=== PATIENT | female | born 1995 | race Caucasian/White ===

== ENCOUNTER 2019-12-03 17:45 | Emergency (ER) | payer OTHER ==
[2019-12-03] MEDS ORDERED: NORMAL SALINE 1000 ML 1,000 ML IV ONE (18:33)
--- NOTE | 2019-12-03 18:34 | ER Document Report ---
ED Medical Screen (RME) - General Chief Complaint: Abnormal Lab Results Stated Complaint: ABNORMAL LABS Time Seen by Provider: 12/03/19 18:30 Information source: Patient Notes: Patient presents complaining of exertional shortness of breath with chest pain that developed today. Patient reports feeling lightheaded. Patient states she recently had outpatient lab work and was told that her iron was low. Patient reports previous history of bipolar disorder. I have greeted and performed a rapid initial assessment of this patient. A comprehensive ED assessment and evaluation of the patient, analysis of test results and completion of the medical decision making process will be conducted by additional ED providers. - Related Data Allergies/Adverse Reactions: No Known Allergies Allergy (Verified 12/03/19 18:15) Home Medications: seroquel. prozac. control. vitamin b 12 d c. multivitamin Past Medical History - Social History Chew tobacco use (# tins/day): No Frequency of alcohol use: None Drug Abuse: None Physical Exam - Vital signs Vitals: Temp Pulse Resp BP Pulse Ox 98.3 F 102 H 18 132/72 H 99 12/03/19 17:57 12/03/19 17:57 12/03/19 17:57 12/03/19 17:57 12/03/19 17:57 - Respiratory Respiratory status: No respiratory distress - Cardiovascular Rhythm: Tachycardia Heart sounds: S1 appreciated, S2 appreciated Murmur: No Course - Vital Signs Vital signs: Temp Pulse Resp BP Pulse Ox 98.3 F 102 H 18 132/72 H 99 12/03/19 18:16 12/03/19 17:57 12/03/19 17:57 12/03/19 17:57 12/03/19 17:57
[2019-12-03 19:06] LABS: ABSOLUTE EOSINOPHILS # (AUTO) 0.2 10^3/uL (0.0-0.6); ABSOLUTE LYMPHOCYTES (AUTO) 2.9 10^3/uL (0.5-4.7); ABSOLUTE MONOCYTES (AUTO) 0.6 10^3/uL (0.1-1.4); ABSOLUTE NEUT (AUTO) 7.7 10^3/uL (1.7-8.2); BASOPHILS % (AUTO) 0.3 % (0-2); HEMATOCRIT 38.5 % (36.0-47.0); HEMOGLOBIN 13.2 g/dL (12.0-15.5); LYMPHOCYTES % (AUTO) 25.1 % (13-45); MEAN CORPUSCULAR HEMOGLOBIN 31.7 pg (27.0-33.4); MEAN CORPUSCULAR HGB CONC 34.2 g/dL (32.0-36.0); MEAN CORPUSCULAR VOLUME 93 fl (80-97); MONOCYTES % (AUTO) 5.1 % (3-13); PLATELET COUNT 350 10^3/uL (150-450); RED BLOOD COUNT 4.15 10^6/uL (3.72-5.28); RED CELL DISTRIBUTION WIDTH 13.6 % (11.5-14.0); SEGMENTED NEUTROPHILS % (AUTO) 67.5 % (42-78); TOTAL CELLS COUNTED % (AUTO) 100 %; WHITE BLOOD COUNT 11.4 10^3/uL (4.0-10.5)
--- NOTE | 2019-12-03 19:12 | RADIOLOGY REPORT (SQ) ---
EXAM DESCRIPTION: CHEST SINGLE VIEW IMAGES COMPLETED DATE/TIME: 12/03/2019 7:01 pm REASON FOR STUDY: cp COMPARISON: None. EXAM PARAMETERS: NUMBER OF VIEWS: One view. TECHNIQUE: Single frontal radiographic view of the chest acquired. RADIATION DOSE: NA LIMITATIONS: None. FINDINGS: LUNGS AND PLEURA: No opacities, masses or pneumothorax. No pleural effusion. MEDIASTINUM AND HILAR STRUCTURES: No masses. Contour normal. HEART AND VASCULAR STRUCTURES: Heart normal in size. Normal vasculature. BONES: No acute findings. HARDWARE: None in the chest. OTHER: No other significant finding. IMPRESSION: NO ACUTE RADIOGRAPHIC FINDING IN THE CHEST. TECHNICAL DOCUMENTATION: JOB ID: [id number] 2010 [employer]- All Rights Reserved Reading location - IP/workstation name: [email or web address]
[2019-12-03 19:20] LABS: ALBUMIN 4.1 g/dL (3.5-5.0); ALKALINE PHOSPHATASE 53 U/L (38-126); BILIRUBIN,DIRECT 0.2 mg/dL (0.0-0.4); BILIRUBIN,TOTAL 0.4 mg/dL (0.2-1.3); BLOOD UREA NITROGEN 15 mg/dL (7-20); CARBON DIOXIDE 22 mmol/L (22-30); CHLORIDE 105 mmol/L (98-107); GLUCOSE 82 mg/dL (75-110)
[2019-12-03 19:22] LABS: ASPARTATE AMINO TRANSFERASE 24 U/L (14-36); POTASSIUM 4.8 mmol/L (3.6-5.0)
[2019-12-03 19:25] LABS: ANION GAP 11 (5-19)
--- NOTE | 2019-12-03 21:12 | ER Document Report ---
ED General - General Chief Complaint: Abnormal Lab Results Stated Complaint: ABNORMAL LABS Time Seen by Provider: 12/03/19 18:30 Primary Care Provider: RADHA HAHN MD [Primary Care Provider] - Follow up as needed Notes: Patient is a 24-year-old white female with a past medical history of bipolar disorder who presents the emergency department with a chief complaint of chest pain and shortness of breath that began earlier today around noon. The patient reports over the past 2 months she is gained about 20 pounds unexpectedly despite exercise. She states that she went to see her doctor and he told her that her iron was critically low. He reported that she had iron supplementation and her multivitamins and in her control and her iron was still low despite this oral supplementation that she would require iron infusions. She reports she is unsure of any other test that he did and she is unsure what her hemoglobin was. She states that he was supposed to be setting her up with iron infusions but has not yet gotten there. She states today she is feeling very weak and fatigued as she has some over the past 2 months. She states that she started having some chest pain with some associated shortness of breath that was transient in nature. She states combined with her history of knowing she had low iron she was concerned so she came for evaluation. She denies any other pain, complaints or concerns at this time. No hemoptysis. Does not smoke. No lower extremity pain or swelling. No recent surgery, recent travel or recent mobilization. No history of cancer. She does take control medicines. - Related Data Allergies/Adverse Reactions: No Known Allergies Allergy (Verified 12/03/19 18:15) Home Medications: seroquel. prozac. control. vitamin b 12 d c. multivitamin Past Medical History - General Information source: Patient - Social History Smoking Status: Never Smoker Chew tobacco use (# tins/day): No Frequency of alcohol use: None Drug Abuse: None Family History: None Patient has homicidal ideation: No Review of Systems - Review of Systems Constitutional: denies: Fever EENT: denies: Nose discharge Cardiovascular: denies: Dyspnea Respiratory: denies: Stridor Gastrointestinal: denies: Vomiting Genitourinary: denies: Frequency Female Genitourinary: denies: Vaginal discharge Musculoskeletal: denies: Neck pain Hematologic/Lymphatic: denies: Easy bruising Neurological/Psychological: Weakness Physical Exam - Vital signs Vitals: Temp Pulse Resp BP Pulse Ox 98.3 F 102 H 18 132/72 H 99 12/03/19 17:57 12/03/19 17:57 12/03/19 17:57 12/03/19 17:57 12/03/19 17:57 - General General appearance: Appears well, Alert In distress: None - HEENT Head: Normocephalic, Atraumatic Eyes: Normal Conjunctiva: Normal Extraocular movements intact: Yes Pupils: PERRL Ears: Normal External canal: Normal Tympanic membrane: Normal Nasal: Normal Mouth/Lips: Normal Mucous membranes: Normal Pharynx: Normal Neck: Normal - Respiratory Respiratory status: No respiratory distress Chest status: Nontender Breath sounds: Normal Chest palpation: Normal - Cardiovascular Rhythm: Regular Heart sounds: Normal auscultation - Abdominal Inspection: Normal Distension: No distension Bowel sounds: Normal Tenderness: Nontender Organomegaly: No organomegaly - Extremities General upper extremity: No: Edema General lower extremity: No: Edema, Trisha's sign - Neurological Neuro grossly intact: Yes Cognition: Normal Orientation: AAOx4 - Psychological Associated symptoms: Other - Depressed affect - Skin Skin Temperature: Warm Skin Moisture: Dry Skin Color: Normal Course - Re-evaluation Re-evalutation: 12/03/19 21:06 EKG: Sinus rhythm at 77 bpm. Normal axis. Normal intervals. Some Q waves noted inferiorly. No STEMI. Interpreted by myself in conjunction with ED attending. Wells score 1.5, low risk, PE unlikely. Troponin negative. TSH within normal limits. Hemoglobin within normal limits. No findings on physical and work-up to explain patient's symptoms. She is pending outpatient further evaluation where she reports needing iron infusions from her provider. She is unsure of any other markers with a checked in her laboratory studies such as B12 or autoimmune disorders. She is stable and appropriate for discharge and ou tpatient follow-up at this time. I counseled her regarding the importance of outpatient follow-up and advised that she return here or any ER immediately with any new, persistent or worsening symptoms. She verbalized understood and agreed. 12/03/19 21:09 - Vital Signs Vital signs: Temp Pulse Resp BP Pulse Ox 98.3 F 102 H 18 132/72 H 99 12/03/19 18:16 12/03/19 17:57 12/03/19 17:57 12/03/19 17:57 12/03/19 17:57 - Laboratory Result Diagrams: 12/03/19 18:35 12/03/19 18:35 Laboratory results interpreted by me: 12/03/19 18:35 WBC 11.4 H Discharge - Discharge Clinical Impression: Shortness of breath Chest pain Qualifiers: Chest pain type: unspecified Qualified Code(s): R07.9 - Chest pain, unspecified Condition: Stable Disposition: HOME, SELF-CARE Instructions: Chest Pain of Unclear Cause ([facility]) Additional Instructions: Please follow-up with your doctor first thing Friday morning for continued outpatient management and care. Please return here or any ER immediately with any new, persistent or worsening symptoms. Referrals: RADHA HAHN MD [Primary Care Provider] - Follow up as needed
[2019-12-03 21:22] VITALS: BP 130/70
--- NOTE | 2019-12-04 10:09 | EKG REPORT ---
SEVERITY:- NORMAL ECG - SINUS RHYTHM : Confirmed by: Nia Waldron MD 04-Dec-2019 10:08:14
== END 2019-12-03 21:22 | disposition home or self-care (01) ==
LOC: ER 17:45
DX: R07.9 Chest pain, unspecified (principal); R06.02 Shortness of breath; R63.5 Abnormal weight gain; R53.1 Weakness; R53.83 Other fatigue; F31.9 Bipolar disorder, unspecified; Z79.899 Other long term (current) drug therapy; Z79.3 Long term (current) use of hormonal contraceptives
CPT/HCPCS: 36415; 71045; 80053; 83735; 84443; 84484; 84703; 85025; 93005; 93010; 99285